=== PATIENT | male | born 1950 | race Caucasian/White ===

== ENCOUNTER 2022-01-18 21:33 | Outpatient (REF) | payer MEDICARE, SELFPAY ==
[2022-01-18 21:52] LABS: Anion Gap 9.3 mmol/L (3-11); BUN 15 mg/dL (7-18); CO2 29.7 mmol/L (21.0-32.0); Calcium 9.2 mg/dL (8.5-10.1); Calculated LDL 141 mg/dL (<100); Chloride 104 mmol/L (98-107); Cholesterol 220 mg/dL (<200); Estimated GFR 81.47 (mL/min/1.73m2); Glucose 98 mg/dL (74-106); HDL Cholesterol 62 mg/dL (40-60); Potassium 3.9 mmol/L (3.5-5.1); Sodium 143 mmol/L (136-145); Triglyceride 87 mg/dL (<150)
[2022-01-19 18:01] LABS: PSA, Screening 4.2 ng/mL (<=4.5)
== END 2022-01-18 21:34 | disposition home or self-care (01) ==
LOC: NCHCN 21:33
PROVIDERS: Visit Provider Nurse Practitioner Family
DX: R03.0 Elevated blood-pressure reading, without diagnosis of hypertension (principal); Z78.9 Other specified health status; Z12.5 Encounter for screening for malignant neoplasm of prostate
CPT/HCPCS: 80048; 80061; 84153

== ENCOUNTER 2022-09-01 15:23 | Outpatient (REF) | payer MEDICARE, SELFPAY ==
--- OUTSIDE RECORDS SUMMARY | 2022-09-01 15:26 | XMS_ITS | CCD ---
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 BP Systolic 109 mmHg 08/17/2022 14:01 Initial VS BP Diastolic 71 mmHg 08/17/2022 14:01 Initia l VS Respiratory Rate 13 bpm 08/17/2022 14:01 In itial VS Heart Rate 68 bpm 08/17/2022 14:01 Initial VS O2 % BldC Oximetry 96 % 08/17/2022 14:01 Initial VS Body Temperature 36.9 degrees 08/17/2022 14:01 In itial VS BP Systolic 113 mmHg 08/17/2022 14:03 Most Re cent VS BP Diastolic 71 mmHg 08/17/2022 14:03 Most R ecent VS Respiratory Rate 14 bpm 08/17/2022 14:[address] Recent VS Heart Rate 65 bpm 08/17/2022 14:03 Most Rec ent VS O2 % BldC Oximetry 97 % 08/17/2022 14:03 Most Recent VS Allergies Unknown or Not Available. Procedures Procedure Code Procedure Type Date Colsc Flx w/[place] [address] CPT 08/17/2022 History of Immunizations Unknown or Not Available. Problems Unknown or Not Available. Results Unknown or Not Available. Active Medications Unknown or Not Available. Medications Administered During Visit Unknown or Not Available. Encounters Encounter Diagnosis Diagnosis Code Start Date Encounter for screening for malignant neoplasm o f colon [id number] 08/17/2022 Social History Smoking Status Code Start Date End Date Former smoker [id number] Patient Decision Aids Unknown or Not Available. Discharge Instructions You were admitted to [facility] on 08/17/2022 10:31 with a principal diagnosis of Encounter for screening for malignant neoplasm of colon You had the following procedures done:Colsc Flx w/Rmvl Of Tumor Polyp Lesion Snare Tq You were discharged from [facility] on 08/17/2022 14:07 Should you have any questions prior to discharge, please contact a member of your healthcare team. If you have left the hospital and have any questions, please contact your primary care physician. Chief Complaint and Reason For Visit Unknown or Not Available. Function Status Unknown or Not Available. Plan of Care Unknown or Not Available. Referral/Transition of Care Unknown or Not Available.
[2022-09-01 22:24] LABS: Anion Gap 8.6 mmol/L (3-11); BUN 14 mg/dL (7-18); CO2 27.4 mmol/L (21.0-32.0); Chloride 105 mmol/L (98-107); Estimated GFR 80.97 (mL/min/1.73m2); Glucose 104 mg/dL (74-106); Potassium 3.8 mmol/L (3.5-5.1); Sodium 141 mmol/L (136-145)
== END 2022-09-01 15:24 | disposition home or self-care (01) ==
LOC: NCHCN 15:23
PROVIDERS: Visit Provider Nurse Practitioner Family
DX: R03.0 Elevated blood-pressure reading, without diagnosis of hypertension (principal)
CPT/HCPCS: 80048

== ENCOUNTER 2023-01-05 08:47 | Outpatient (REF) | payer MEDICARE, SELFPAY ==
[2023-01-05 15:59] LABS: Anion Gap 7.8 mmol/L (3-11); BUN 19 mg/dL (7-18); CO2 27.2 mmol/L (21.0-32.0); CREATININE 1.1 mg/dL (0.70-1.30); Calculated LDL 159 mg/dL (<100); Chloride 103 mmol/L (98-107); Cholesterol 233 mg/dL (<200); Estimated GFR 72.22 (mL/min/1.73m2); Glucose 109 mg/dL (74-106); HDL Cholesterol 55 mg/dL (40-60); Potassium 4.1 mmol/L (3.5-5.1); Sodium 138 mmol/L (136-145); Triglyceride 98 mg/dL (<150)
[2023-01-05 22:19] LABS: PSA, Screening 3.6 ng/mL (<=6.5)
== END 2023-01-05 08:48 | disposition home or self-care (01) ==
LOC: NCHCN 08:47
PROVIDERS: Visit Provider Nurse Practitioner Family
DX: I10 Essential (primary) hypertension (principal); Z12.5 Encounter for screening for malignant neoplasm of prostate; R79.89 Other specified abnormal findings of blood chemistry
CPT/HCPCS: 80048; 80061; 84153

== ENCOUNTER 2024-01-10 09:05 | Outpatient (REF) | payer MEDICARE, SELFPAY ==
[2024-01-10 17:23] LABS: HCT 41.8 % (40.0-50.0); HGB 14.3 g/dL (13.5-17.5); MCH 30.9 pg (27.0-33.0); MCHC 34.2 % (32.0-36.0); MCV 90 fL (80-95); MPV 10.3 fL (8.0-11.0); Platelet Count 165 10^3/uL (130-400); RBC 4.63 10^6/uL (4.36-5.78); RDW 13.2 % (11.8-14.1); RDW-SD 43.4 fL; WBC 4.43 10^3/uL (4.4-10.8)
[2024-01-10 17:49] LABS: ALT 37 U/L (16-63); AST 25 U/L (15-37); Alkaline Phosphatase 64 U/L (46-116); BUN 15 mg/dL (7-18); Bilirubin, Total 1.18 mg/dL (0.2-1.0); Calcium 8.7 mg/dL (8.5-10.1); Calculated LDL 77 mg/dL (<100); Chloride 106 mmol/L (98-107); Cholesterol 148 mg/dL (<200); Estimated GFR 80.47 (mL/min/1.73m2); Glucose 100 mg/dL (74-106); HDL Cholesterol 58 mg/dL (40-60); Potassium 4.4 mmol/L (3.5-5.1); Sodium 141 mmol/L (136-145); Total Protein 7.1 g/dL (6.4-8.2); Triglyceride 69 mg/dL (<150)
[2024-01-10 17:53] LABS: Hemoglobin A1C 5.1 % (<5.7)
[2024-01-11 18:34] LABS: PSA, Screening 3.3 ng/mL (<=6.5)
== END 2024-01-10 09:06 | disposition home or self-care (01) ==
LOC: NCHCN 09:05
PROVIDERS: PCP Nurse Practitioner Family; Visit Provider Nurse Practitioner Family
DX: I10 Essential (primary) hypertension (principal); R73.9 Hyperglycemia, unspecified; Z12.5 Encounter for screening for malignant neoplasm of prostate
CPT/HCPCS: 80053; 80061; 84153; 85027; 83036

== ENCOUNTER 2025-01-07 10:56 | Outpatient (REF) | payer MEDICARE, SELFPAY ==
[2025-01-07 14:38] LABS: HCT 44.7 % (40.0-50.0); HGB 15.4 g/dL (13.5-17.5); MCH 30.7 pg (27.0-33.0); MCHC 34.5 % (32.0-36.0); MCV 89 fL (80-95); MPV 9.7 fL (8.0-11.0); Platelet Count 169 10^3/uL (130-400); RBC 5.02 10^6/uL (4.36-5.78); RDW 13.1 % (11.8-14.1); RDW-SD 42.6 fL; WBC 5.03 10^3/uL (4.4-10.8)
[2025-01-07 15:11] LABS: Hemoglobin A1C 5.2 % (<5.7)
[2025-01-07 15:14] LABS: ALT 33 U/L (16-63); AST 26 U/L (15-37); Albumin 4.1 g/dL (3.4-5.0); Alkaline Phosphatase 73 U/L (46-116); Anion Gap 8.3 mmol/L (3-11); BUN 16 mg/dL (7-18); Bilirubin, Total 1.2 mg/dL (0.2-1.0); CO2 26.7 mmol/L (21.0-32.0); Calcium 9.2 mg/dL (8.5-10.1); Chloride 104 mmol/L (98-107); Estimated GFR 79.97 (mL/min/1.73m2); Glucose 103 mg/dL (74-106); Potassium 4.8 mmol/L (3.5-5.1); Sodium 139 mmol/L (136-145); Total Protein 7.4 g/dL (6.4-8.2)
[2025-01-08 10:56] LABS: PSA, Screening 4.0 ng/mL (<=6.5)
== END 2025-01-07 10:57 | disposition home or self-care (01) ==
LOC: NCHCN 10:56
PROVIDERS: PCP Nurse Practitioner Family; Visit Provider Nurse Practitioner Family
DX: R73.03 Prediabetes (principal); I10 Essential (primary) hypertension; Z12.5 Encounter for screening for malignant neoplasm of prostate
CPT/HCPCS: 80053; 84153; 85027; 83036